=== PATIENT | female | born 1960 | race Caucasian/White ===

== ENCOUNTER 2019-11-23 08:41 | Outpatient (CLI) | payer BC, SELFPAY ==
--- NOTE | 2019-11-23 08:15 | XR_ITS ---
WS: [id number] XR KUB [id number] REASON FOR EXAM: stone FINDINGS: The left kidney shows multiple small stones less than 1 mm. The right kidney along the inferior pole shows a stone measures 2.84 mm. There is no stones in the region of the ureters. A small calcified density is seen in the left side of the urinary bladder. XR/XR KUB [id number] IMPRESSION: Stones in both kidneys the largest on the right A questionable stone is seen in the left side the urinary bladder.
== END 2019-11-23 08:42 | disposition home or self-care (01) ==
LOC: RAD 08:44
PROVIDERS: PCP Internal Medicine; Visit Provider Urology
DX: N20.0 Calculus of kidney (principal)
CPT/HCPCS: 74018; 80053

== ENCOUNTER 2020-03-14 08:43 | Outpatient (CLI) | payer BC, SELFPAY ==
--- NOTE | 2020-03-14 08:53 | MM_ITS ---
WS: [id number] SCREENING DIGITAL MAMMOGRAM WITH CAD HISTORY: SCREENING COMPARISON: 01/30/2019 and 01/07/2018 Bilateral CC and MLO views submitted. Computer aided detection analyzed. Breast composition: There are scattered areas of fibroglandular density. Ill-defined asymmetry in the mid LEFT breast measures 8 mm. Asymmetry is just medial to the nipple li ne. MM/[place] [id number] IMPRESSION: BI-RADS: 0-Incomplete: Need additional imaging evaluation FOLLOW UP: Need Additional Imaging LEFT breast: Spot compression views (CC and MLO). True ML. Ultrasound to follow if abnormality persists.
== END 2020-03-14 08:44 | disposition home or self-care (01) ==
LOC: RADSHAW 08:45
PROVIDERS: PCP Internal Medicine; Visit Provider Obstetrics & Gynecology
DX: Z12.31 Encounter for screening mammogram for malignant neoplasm of breast (principal); N64.89 Other specified disorders of breast
CPT/HCPCS: 77067

== ENCOUNTER 2020-04-02 09:29 | Outpatient (CLI) | payer BC, SELFPAY ==
--- NOTE | 2020-04-02 10:00 | MM_ITS ---
WS: [id number] ADDITIONAL VIEWS LEFT MAMMOGRAM HISTORY: Left breast asymmetry COMPARISON: 03/14/2020 and 01/30/2019 Spot compression views LEFT breast in CC, MLO projections and true ML submitted. Asymmetry in the central LEFT breast completely resolves with additional views. MM/[place] [id number] IMPRESSION: BI-RADS: 2-Benign FOLLOW UP: 1 Year Follow-up
== END 2020-04-02 09:30 | disposition home or self-care (01) ==
LOC: RADSHAW 09:31
PROVIDERS: PCP Internal Medicine; Visit Provider Obstetrics & Gynecology
DX: N64.89 Other specified disorders of breast (principal)
CPT/HCPCS: 77065

== ENCOUNTER 2020-09-26 12:49 | Outpatient (CLI) | payer BC, SELFPAY ==
--- NOTE | 2020-09-26 12:54 | XR_ITS ---
WS: [id number] KUB, AP view, 09/26/2020 Clinical Data: KIDNEY STONE Comparison: KUB, 11/23/2019. Findings: No abnormal intraabdominal masses are seen. There is no dilatated small bowel or evidence of obstruct ion. There are left renal calculi but the right kidney is obscured by overlying fecal material and gas. Th ere is a phlebolith on the left side of the true pelvis. XR/XR KUB [id number] Impression: 1. Right kidney obscured by overlying colon gas and fecal material. 2. Small left renal calculi.
== END 2020-09-26 12:50 | disposition home or self-care (01) ==
LOC: RAD 12:52
PROVIDERS: PCP Internal Medicine; Visit Provider Nurse Practitioner Family
DX: N20.0 Calculus of kidney (principal)
CPT/HCPCS: 74018; 81003; 87086

== ENCOUNTER 2020-10-09 08:19 | Outpatient (CLI) | payer BC, SELFPAY ==
--- NOTE | 2020-10-09 08:15 | XR_ITS ---
WS: [id number] KUB, AP view, 10/09/2020 Clinical Data: Renal stone Comparison: KUB, 09/26/2020. Findings: There are small calculi overlying both kidneys. The left renal calculi have not changed in number or size. There is a phlebolith on the left side of the true pelvis. XR/XR KUB [id number] Impression: Small bilateral renal calculi.
== END 2020-10-09 08:20 | disposition home or self-care (01) ==
LOC: RAD 08:20
PROVIDERS: PCP Internal Medicine; Visit Provider Urology
DX: N20.0 Calculus of kidney (principal)
CPT/HCPCS: 74018; 81003

== ENCOUNTER 2020-10-23 14:02 | Outpatient (CLI) | payer BC, SELFPAY ==
--- NOTE | 2020-10-23 14:30 | MM_ITS ---
WS: [id number] RIGHT DIGITAL MAMMOGRAPHY WITH CAD CLINICAL INFORMATION: N64.4 - Mastodynia COMPARISON: March 14, 2020 TECHNIQUE: 4 views of the right breast were obtained. FINDINGS: Scattered fibroglandular densities of the right breast. No suspicious focal mass, asymmetry, calcifications, or architectural distortion. Right breast ultras ound is pending.. ULTRASOUND BREAST RIGHT TECHNIQUE: Ultrasound right breast focused area of concern. CLINICAL INFORMATION: N64.4 - Mastodynia FINDINGS: Dilated ducts in the subareolar location consistent with ductal ectasia. No visualized intraductal o r well-circumscribed lesions to target for biopsy. Findings have a benign appearance. MM/[place] [id number] IMPRESSION: BI-RADS: 2-Benign FOLLOW UP: 1 Year Follow-up Recommend return to annual screening mammography.
--- NOTE | 2020-10-23 15:00 | US_ITS ---
WS: [id number] RIGHT DIGITAL MAMMOGRAPHY WITH CAD CLINICAL INFORMATION: N64.4 - Mastodynia COMPARISON: March 14, 2020 TECHNIQUE: 4 views of the right breast were obtained. FINDINGS: Scattered fibroglandular densities of the right breast. No suspicious focal mass, asymmetry, calcifications, or architectural distortion. Right breast ultras ound is pending.. ULTRASOUND BREAST RIGHT TECHNIQUE: Ultrasound right breast focused area of concern. CLINICAL INFORMATION: N64.4 - Mastodynia FINDINGS: Dilated ducts in the subareolar location consistent with ductal ectasia. No visualized intraductal o r well-circumscribed lesions to target for biopsy. Findings have a benign appearance. US/US breast RT limited* [id number] IMPRESSION: BI-RADS: 2-Benign FOLLOW UP: 1 Year Follow-up Recommend return to annual screening mammography.
== END 2020-10-23 14:03 | disposition home or self-care (01) ==
LOC: RADSHAW 14:06
PROVIDERS: PCP Internal Medicine; Visit Provider Obstetrics & Gynecology
DX: N64.4 Mastodynia (principal)
CPT/HCPCS: 76642; 77065

== ENCOUNTER → 2020-11-22 14:45 | Outpatient (BNVA) | payer BC, SELFPAY | PROVIDERS: PCP Internal Medicine; Visit Provider Nurse Practitioner Women's Health | DX: N95.1 Menopausal and female climacteric states (principal); B37.9 Candidiasis, unspecified; Z12.39 Encounter for other screening for malignant neoplasm of breast; Z01.419 Encounter for gynecological examination (general) (routine) without abnormal findings; N11.9 Chronic tubulo-interstitial nephritis, unspecified; N64.4 Mastodynia | CPT/HCPCS: 88175 ==

== ENCOUNTER 2021-03-19 09:33 | Outpatient (CLI) | payer BC, SELFPAY ==
--- NOTE | 2021-03-19 09:30 | MM_ITS ---
WS: [id number] BILATERAL DIGITAL SCREENING MAMMOGRAPHY WITH CAD CLINICAL INFORMATION: Z12.39 - Encounter for other screening for malignant neop... HISTORY: Screening mammogram. No current complaints. COMPARISON: March 14 2020 TECHNIQUE: Bilateral CC and MLO views. FINDINGS: Scattered fibroglandular densities bilaterally. No suspicious focal mass, asymmetry, calcifications, or architectural distortion. No evidence of malignancy. MM/[place] [id number] IMPRESSION: BI-RADS: 1-Negative FOLLOW UP: 1 Year Follow-up Recommend return to annual screening mammography.
== END 2021-03-19 09:34 | disposition home or self-care (01) ==
LOC: RADSHAW 09:36
PROVIDERS: PCP Internal Medicine; Visit Provider Nurse Practitioner Women's Health
DX: Z12.31 Encounter for screening mammogram for malignant neoplasm of breast (principal)
CPT/HCPCS: 77067

== ENCOUNTER 2021-10-08 08:58 | Outpatient (CLI) | payer BC, SELFPAY ==
--- NOTE | 2021-10-08 08:15 | XRR_ITS ---
PROCEDURE INFORMATION: Exam: XR Abdomen Exam date and time: 10/08/2021 9:03 AM Age: 61 years old Clinical indication: Condition or disease; Kidney or ureter condition; Calculus (stone) in kidney; Prior surgery; Surgery type: C section; Additional info: Calculus of kidney, kulwinder @ [facility] on 10/08/21 @ 8:15. Appt to follow TECHNIQUE: Imaging protocol: XR of the abdomen. Views: Frontal supine view of the abdomen. 1 View. COMPARISON: CR XR KUB [id number] 10/09/2020 8:50 AM FINDINGS: Gastrointestinal tract: Small to moderate stool burden with no obvious bowel obstruction. Organs: Small calcifications are noted in the bilateral renal regions similar to prior exam suggesting bilateral renal calculi, the largest measuring 4 x 3 mm on the left and 3 x 2 mm on the right. Assessment of urinary calculus disease is otherwise limited due to obscuration by abdominal content. If there is a strong clinical concern for obstructing ureteral calculi, additional imaging such as CT may also be considered. Small pelvic calcifications are likely phleboliths. Bones/joints: No acute findings. XR/XR KUB [id number] IMPRESSION: Small bilateral renal calculi, probably unchanged. See discussion above.
== END 2021-10-08 08:59 | disposition home or self-care (01) ==
PROVIDERS: PCP Internal Medicine; Visit Provider Urology
DX: N20.0 Calculus of kidney (principal)
CPT/HCPCS: 74018; 81003; 87086

== ENCOUNTER → 2021-12-16 11:05 | Outpatient (BNVA) | payer BC, SELFPAY | PROVIDERS: PCP Internal Medicine; Visit Provider Nurse Practitioner Women's Health | DX: Z13.820 Encounter for screening for osteoporosis (principal); Z78.0 Asymptomatic menopausal state; N95.1 Menopausal and female climacteric states | CPT/HCPCS: 87624 ==

== ENCOUNTER 2022-02-11 13:54 | Outpatient (CLI) | payer BC, SELFPAY ==
--- NOTE | 2022-02-11 14:00 | XR_ITS ---
WS: [email or web address] DEXA (DUAL ENERGY X-RAY ABSORPTIOMETRY) Bone mineral density was performed using a [employer] machine. HISTORY: Z13.820 - Encounter for screening for osteoporosis COMPARISON: None available. Lumbar spine BMD (L1-L4): 1.048 g/cm2 T score: -1.1 Z score: -0.4 Total hip BMD: Left: 0.865 g/cm2. T score: -1.1 Z score: -0.5 Right: 0.834 g/cm2. T score: -1.4 Z score: -0.8 10 year probability of a major osteoporotic fracture is 9.8%. XR/XR DEXA axial skeleton* [id number] IMPRESSION: OSTEOPENIA based upon the WHO classification for females.
== END 2022-02-11 13:55 | disposition home or self-care (01) ==
LOC: RAD 13:54
PROVIDERS: PCP Internal Medicine; Visit Provider Nurse Practitioner Women's Health
DX: Z13.820 Encounter for screening for osteoporosis (principal); Z78.0 Asymptomatic menopausal state; M85.80 Other specified disorders of bone density and structure, unspecified site
CPT/HCPCS: 77080

== ENCOUNTER 2022-03-23 08:01 | Outpatient (CLI) | payer BC, SELFPAY ==
--- NOTE | 2022-03-23 08:08 | MM_ITS ---
WS: [email or web address] SCREENING DIGITAL BREAST TOMOSYNTHESIS MAMMOGRAM WITH CAD HISTORY: SCREEN COMPARISON: 03/19/2021, 04/02/2020 Bilateral CC and MLO with tomosynthesis and synthetic mammography submitted. Computer aided detection analyzed. Breast composition: The breasts are heterogeneously dense, which may obscure small masses. Subtle are a of architectural distortion in the upper outer quadrant of the RIGHT breast seen best on the tomosy nthesis. No associated mass. LEFT breast is negative. MM/[place] [id number] IMPRESSION: BI-RADS: 0-Incomplete: Need additional imaging evaluation FOLLOW UP: Need Additional Imaging RIGHT breast: Spot compression views (CC and MLO). True ML. Ultrasound to follo w if abnormality persists.
== END 2022-03-23 08:02 | disposition home or self-care (01) ==
PROVIDERS: PCP Internal Medicine; Visit Provider Nurse Practitioner Women's Health
DX: Z12.31 Encounter for screening mammogram for malignant neoplasm of breast (principal)
CPT/HCPCS: 77063; 77067

== ENCOUNTER 2022-05-11 13:43 | Outpatient (CLI) | payer BC, SELFPAY ==
--- NOTE | 2022-05-11 13:47 | MM_ITS ---
WS: [email or web address] ADDITIONAL VIEWS RIGHT MAMMOGRAM WITH DIGITAL BREAST TOMOSYNTHESIS. HISTORY: Follow up screening exam. COMPARISON: 03/23/2022, 03/19/2021 RIGHT MAMMOGRAM: Spot compression views and true ML with digital breast tomosynthesis and SM. The asymmetry in the lateral RIGHT breast resolves with additional imaging. There is no distortion or spiculated seen. No mass. MM/[place] [id number] IMPRESSION: BI-RADS: 2-Benign FOLLOW UP: 1 Year Follow-up Distortion resolved with additional imaging in the RIGHT breast. Return to [facility] screening mammography.
== END 2022-05-11 13:44 | disposition home or self-care (01) ==
LOC: RAD 13:43
PROVIDERS: PCP Internal Medicine; Visit Provider Nurse Practitioner Women's Health
DX: R92.8 Other abnormal and inconclusive findings on diagnostic imaging of breast (principal)
CPT/HCPCS: 77061; G0279

== ENCOUNTER 2023-03-26 07:55 | Outpatient (CLI) | payer BC, SELFPAY ==
--- NOTE | 2023-03-26 07:58 | MM_ITS ---
WS: [email or web address] Bilateral screening 3D tomosynthesis digital mammogram, 03/26/2023 Clinical Data: Z12.31 - Encounter for screening mammogram for malignant ... Comparison: 05/11/2022, 03/23/2022, 03/19/2021, 10/23/2020, 04/02/2020 03/14/2020, 01/30/2019, 01/07/2018, 11/10/2016, 10/08/2015, 09/28/2014, 08/24/2013, 06/07/2012, 05/15/2011, 05/07/2010, 04/11/2009, 05/19/2007, 04/08. Findings: The breast parenchymal pattern shows fibroglandular tissue. No spiculated masses or clustered calcifi cations are seen. There are no secondary signs of carcinoma. Impression: 1. Negative bilateral mammogram unchanged. 2. Recommend annual screening mammograms. MM/[place] [id number] BIRADS: 1-Negative FOLLOW UP: 1 Year Follow-up The CAD schedule checker was used.
== END 2023-03-26 07:56 | disposition home or self-care (01) ==
LOC: RAD 07:56
PROVIDERS: PCP Internal Medicine; Visit Provider Nurse Practitioner Women's Health
DX: Z12.31 Encounter for screening mammogram for malignant neoplasm of breast (principal)
CPT/HCPCS: 77063; 77067

== ENCOUNTER 2023-08-26 13:37 | Outpatient (CLI) | payer BC, SELFPAY ==
--- NOTE | 2023-08-26 13:50 | XR_ITS ---
WS: [email or web address] Abdomen series, Flat and upright 08/26/2023 Clinical Data: NEPHROLITHIASIS Comparison: KUB, 10/08/2021 Findings: No free air is seen beneath the diaphragms. There are faint calcifications overlying the ri ght kidney and slightly more dense calcifications overlying the left kidney. There is air in the colo n. There is opacification of the left lung base which may represent atelectasis. Impression: Bilateral renal calculi.
== END 2023-08-26 13:38 | disposition home or self-care (01) ==
LOC: RAD 13:40
PROVIDERS: PCP Internal Medicine; Visit Provider Urology
DX: N20.0 Calculus of kidney (principal)
CPT/HCPCS: 74019

== ENCOUNTER → 2024-01-04 08:49 | Outpatient (BNVA) | payer BC, SELFPAY | PROVIDERS: PCP Internal Medicine; Visit Provider Nurse Practitioner Women's Health | DX: Z12.4 Encounter for screening for malignant neoplasm of cervix (principal) | CPT/HCPCS: 87624 ==

== ENCOUNTER 2024-02-22 08:58 | Outpatient (CLI) | payer BC, SELFPAY ==
--- NOTE | 2024-02-22 09:11 | XRR_ITS ---
PROCEDURE INFORMATION: Exam: XR Abdomen Exam date and time: 02/22/2024 9:25 AM Age: 64 years old Clinical indication: Condition or disease; Kidney or ureter condition; Calculus (stone) in kidney; Prior surgery; Surgery date: 6+ months; Surgery type: C section; Additional info: Nephrolithiasis TECHNIQUE: Imaging protocol: Radiologic exam of the abdomen. Views: Frontal supine view of the abdomen. 1 View. COMPARISON: CR XR abdomen min 2V [id number] 08/26/2023 2:00 PM FINDINGS: Gastrointestinal tract: Normal. No bowel dilation. Small left renal calculi. Nonspecific bowel gas pattern. Bones/joints: Unremarkable. XR/XR abdomen 1V* [id number] IMPRESSION: No acute findings.
== END 2024-02-22 08:59 | disposition home or self-care (01) ==
PROVIDERS: PCP Internal Medicine; Visit Provider Urology
DX: N20.0 Calculus of kidney (principal)
CPT/HCPCS: 74018

== ENCOUNTER 2024-03-23 08:23 | Outpatient (CLI) | payer BC, SELFPAY ==
[2024-03-23 08:42] LABS: Basophils # 0.1 10^3/uL (0.0-0.1); Basophils % 1.3 %; Eosinophils # 0.1 10^3/uL (0.0-0.8); Eosinophils % 2.9 %; Hematocrit 41.1 % (36-47); Lymphocytes # 1.9 10^3/uL (0.8-4.8); Lymphocytes % 42.4 %; Mean Corpuscular HGB Conc 34.1 g/dL (30-55); Mean Corpuscular Hemoglobin 32.8 pg (27-33); Mean Corpuscular Volume 96.3 fl (85-98); Mean Platelet Volume 9.1 fL (7.4-10.4); Monocytes # 0.4 10^3/uL (0.2-0.9); Monocytes % 7.8 %; Neutrophils # 2.04 10^3/uL (1.8-7.7); Neutrophils % 45.4 %; Nucleated Red Blood Cells % 0 %; Platelet Count 235 10^3/cmm (157-399); Red Blood Count 4.27 10^6/uL (3.85-5.65); Red Cell Distribution Width 11.9 % (12.1-15.1)
[2024-03-23 09:00] LABS: Anion Gap 12.3 (5-19); Blood Urea Nitrogen 13 mg/dL (8-23); Calcium 8.8 mg/dL (8.5-10.5); Carbon Dioxide 28 mmol/L (22-29); Chloride 101 mmol/L (98-107); Glomerular Filtration Rate 55.6 mL/min (90-130); Glucose 95 mg/dL (65-115); Osmolality Calculated 284 mOsm/kg (285-295); Potassium 4.3 mmol/L (3.5-5.1); Sodium 137 mmol/L (136-145)
== END 2024-03-23 08:24 | disposition home or self-care (01) ==
LOC: LAB 08:26
PROVIDERS: PCP Internal Medicine; Visit Provider Urology
DX: Z01.818 Encounter for other preprocedural examination (principal); N20.0 Calculus of kidney
CPT/HCPCS: 36415; 80048; 85025

== ENCOUNTER → 2024-03-27 14:05 | Outpatient (BNVA) | payer BC, SELFPAY | PROVIDERS: PCP Internal Medicine; Referring Provider Urology; Visit Provider Internal Medicine Cardiovascular Disease | DX: Z01.818 Encounter for other preprocedural examination (principal); I49.8 Other specified cardiac arrhythmias; R94.31 Abnormal electrocardiogram [ECG] [EKG] | CPT/HCPCS: 93005 ==

== ENCOUNTER 2024-03-29 12:36 | Outpatient (CLI) | payer BC, SELFPAY ==
--- NOTE | 2024-03-29 13:00 | XR_ITS ---
WS: [email or web address] DEXA (DUAL ENERGY X-RAY ABSORPTIOMETRY) Bone mineral density was performed using a [employer] machine. HISTORY: Z78.0 - Asymptomatic menopausal state COMPARISON: 02/11/2022 Lumbar spine BMD (L1-L4): 1.070 g/cm2 T score: -0.9 Z score: 0.0 Total hip BMD: Left: 0.874 g/cm2. T score: -1.1 Z score: -0.4 Right: 0.862 g/cm2. T score: -1.2 Z score: -0.5 10 year probability of a major osteoporotic fracture is 18.7%. Compared to the prior study from 02/11/2022. Lumbar spine bone mineral density has increased by 2.1%. Bilateral hips bone mineral density has increased by 2.1%. XR/XR DEXA axial skeleton* [id number] IMPRESSION: OSTEOPENIA based upon the WHO classification for females. Significant increase in bone mineral density within the lumbar spine and hips s eun the prior study.
== END 2024-03-29 12:37 | disposition home or self-care (01) ==
LOC: RAD 12:36
PROVIDERS: PCP Internal Medicine; Visit Provider Nurse Practitioner Women's Health
DX: Z13.820 Encounter for screening for osteoporosis; Z78.0 Asymptomatic menopausal state; M85.80 Other specified disorders of bone density and structure, unspecified site
CPT/HCPCS: 77080; 87624

== ENCOUNTER 2024-04-04 13:10 | Outpatient (CLI) | payer BC, SELFPAY ==
--- NOTE | 2024-04-04 13:13 | MM_ITS ---
WS: [email or web address] BILATERAL 3D TOMOSYNTHESIS DIGITAL SCREENING MAMMOGRAPHY WITH CAD CLINICAL INFORMATION: SCREENING HISTORY: Screening mammogram. No current complaints. COMPARISON: 2022 TECHNIQUE: Bilateral CC and MLO views. FINDINGS: Scattered fibroglandular densities bilaterally. No suspicious focal mass, asymmetry, calcifications, or architectural distortion. No evidence of malignancy. MM/MM scr BI tomosynthesis [id number] IMPRESSION: DENSITY: There are scattered areas of fibroglandular density. BI-RADS: 2 - Benign. FOLLOW UP: 1 Year Follow-up Recommend return to annual screening mammography.
== END 2024-04-04 13:11 | disposition home or self-care (01) ==
LOC: RAD 13:10
PROVIDERS: PCP Internal Medicine; Visit Provider Nurse Practitioner Women's Health
DX: Z12.31 Encounter for screening mammogram for malignant neoplasm of breast (principal); R92.323 Mammographic fibroglandular density, bilateral breasts
CPT/HCPCS: 77063; 77067

== ENCOUNTER 2024-04-25 13:22 | Outpatient (CLI) | payer BC, SELFPAY ==
--- NOTE | 2024-04-25 13:29 | XR_ITS ---
WS: [email or web address] Exam: XR KUB [id number] Date/Time of Exam: 04/25/2024 1:46 PM Reason For Exam: NEPHROLITHIASIS No bowel obstruction or free air. No sign of organ enlargement. Calcifications superimpose both kidne ys that apparently represent known renal stones. Bony structures are unremarkable. XR/XR KUB [id number] IMPRESSION: 1. Small bilateral renal calcifications apparently representing known renal sto pratik. No acute finding.
== END 2024-04-25 13:23 | disposition home or self-care (01) ==
LOC: RAD 13:24
PROVIDERS: PCP Internal Medicine; Visit Provider Urology
DX: N20.0 Calculus of kidney (principal)
CPT/HCPCS: 74018

== ENCOUNTER 2024-10-10 09:14 | Outpatient (CLI) | payer MEDICARE, SELFPAY ==
--- NOTE | 2024-10-10 09:18 | CT_ITS ---
WS: [email or web address] CT ABDOMEN AND PELVIS WITH AND WITHOUT CONTRAST HISTORY: WT LOSS-UNEXPLAINED TECHNIQUE: Unenhanced 5 mm axial imaging first performed through the abdomen. Post contrast imaging through the abdomen and pelvis. Oral contrast has been provided. Sagittal and coronal reformats are submitted. All CT scans at [facility] use at least one of these dose optimization techniques: automated exposure control; mA and/or kV adjustment per patient size (includes targeted exams where dose is matched to clinical indication); or iterative reconstruction. CONTRAST: Omnipaque 350; 95 mL IV. DLP: 1085.08 mGy.cm COMPARISON: CT abdomen 04/02/2016 Lung bases are clear. Normal size heart. Very small hiatal hernia. Liver: Long-term stability peripherally enhancing low-attenuation mass in the RIGHT lobe measures 2.4 x 2.4 cm. Consistent with a hemangioma. There is an additional stable 0.7 cm cyst in the central liver between the middle and RIGHT hepatic veins. No intrahepatic duct dilatation. Normal size spleen. No common bile duct dilatation. Normal pancreas. No adrenal mass. Nonobstructing tiny calcifications within each kidney. There are also a few small cortical hypodensities which are too small to characterize. No renal mass or obstruction. Minimal atherosclerosis aorta. Mesenteric arteries are normal. Ventral abdominal wall hernia contains fat only. Hernia orifice is 1.9 cm. No GI tract obstruction. No colitis or appendicitis. No significant diverticular disease. Normal size anteverted uterus. Lobulated contour of the uterus with myometrial nodules consistent with a fibroid uterus. No free fluid in the pelvis. No adenopathy. No destructive bone lesions. CT/CT abdomen pelvis wo/w [id number] IMPRESSION: 1. No acute abdominal or pelvic abnormalities. 2. No ascites or adenopathy. 3. Long-term stability hepatic hemangioma. 4. Ventral abdominal wall hernia contains fat only. 5. No GI tract obstruction. 6. Fibroid uterus.
[2024-10-10] MEDS: iohexol 350 mg/mL 500 mL Btl (per mL) PO (09:52)
[2024-10-10] MEDS: iohexol 350 mg/mL 500 mL Btl (per mL) IV (10:26)
== END 2024-10-10 09:15 | disposition home or self-care (01) ==
LOC: RAD 09:15
PROVIDERS: PCP Nurse Practitioner Family; Visit Provider Surgery
DX: R63.4 Abnormal weight loss (principal); K43.9 Ventral hernia without obstruction or gangrene; K44.9 Diaphragmatic hernia without obstruction or gangrene; R16.0 Hepatomegaly, not elsewhere classified; K76.89 Other specified diseases of liver; N28.89 Other specified disorders of kidney and ureter; R93.89 Abnormal findings on diagnostic imaging of other specified body structures
CPT/HCPCS: 74178

== ENCOUNTER 2025-04-11 09:58 | Outpatient (CLI) | payer MEDICARE, SELFPAY ==
--- NOTE | 2025-04-11 10:20 | MM_ITS ---
WS: [email or web address] Bilateral screening 3D tomosynthesis digital mammogram, 04/11/2025 10:12 AM Clinical Data: Z12.31 - Encounter for screening mammogram for malignant ... Comparison: 04/04/2024, 03/26/2023, 05/11/2022, 03/23/2022, 03/19/2021, 10/23/2020, 04/02/2020, 03/14/2020, 01/30/2019, 01/07/2018, 11/10/2016, 10/08/2015, 09/28/2014, 08/24/2013, 06/16/2012, 05/15/2011, 05/07/2010, 04/11/2009, 05/19/2007, 03/31/2006. Findings: No spiculated masses or clustered calcifications are seen. There are no secondary signs of carcinoma. MM/MM scr BI tomosynthesis [id number] Impression: Negative bilateral mammogram unchanged. Recommend annual screening mammograms. BIRADS: 1 - Negative. FOLLOW UP: 1 Year Follow-up DENSITY: There are scattered areas of fibroglandular density. The CAD drawing checker was used
== END 2025-04-11 09:59 | disposition home or self-care (01) ==
PROVIDERS: PCP Nurse Practitioner Family; Visit Provider Nurse Practitioner Women's Health
DX: Z12.31 Encounter for screening mammogram for malignant neoplasm of breast (principal); R92.323 Mammographic fibroglandular density, bilateral breasts
CPT/HCPCS: 77063; 77067